=== PATIENT | male | born 1930 | race Caucasian/White ===

== ENCOUNTER → 2017-01-31 | Outpatient (CLI) | payer MEDICARE, BC | END | disposition short-term general hospital (02) | LOC: CLCARD 08:51 | DX: I25.10 Atherosclerotic heart disease of native coronary artery without angina pectoris (principal); I65.23 Occlusion and stenosis of bilateral carotid arteries; E78.5 Hyperlipidemia, unspecified; I10 Essential (primary) hypertension; R55 Syncope and collapse; R94.39 Abnormal result of other cardiovascular function study; Z98.61 Coronary angioplasty status; Z95.1 Presence of aortocoronary bypass graft ==